=== PATIENT | male | born 1985 | race Caucasian/White ===

== ENCOUNTER 2019-10-06 13:08 | Emergency (ER) | payer OTHER, SELFPAY ==
--- NOTE | 2019-10-06 13:21 | ED.GENADULT ---
HPI - General Adult General Chief complaint: Unspecified Stated complaint: worried well Time Seen by Provider: 10/06/19 13:21 Source: patient and RN notes reviewed History of Present Illness HPI narrative: Patient is a 34-year-old male who presents the urgent care without any complaints. Patient states that he left work early last week and told his work that his son was diagnosed with influenza A, last Sunday. His employer is now having him cleared to go back to work . Patient does not have any respiratory symptoms and denies of any fever, nausea, vomiting, congestion, stuffy nose, shortness of breath, cough. Patient states he does not have a primary doctor. States that his work is requiring him to get checked out . Again, patient is asymptomatic. Denies of any recent travel. No acute complaints. No acute distress noted. Patient read the plan of care. Related Data Home Medications Medication Instructions Recorded Confirmed No Home Medications 10/06/19 10/06/19 Allergies Allergy/AdvReac Type Severity Reaction Status Date / Time No Known Allergies Allergy Verified 10/06/19 13:24 Review of Systems Review of Systems: Narrative: CONSTITUTIONAL: Denies fever, chills, or sweats. EYES: Denies visual changes, redness, or discharge. ENT: Denies rhinorrhea, congestion, sore throat, or otalgia. CARDIOVASCULAR: Denies chest pain, palpitations, or edema. RESPIRATORY: Denies cough or dyspnea. GASTROINTESTINAL: Denies abdominal pain, nausea, vomiting, or diarrhea. GENITOURINARY: Denies dysuria or hematuria. SKIN: Denies rash or itching. MUSCULOSKELETAL: Denies back pain, joint pain, or myalgia. NEUROLOGIC: Denies headache, numbness, or weakness. All other systems reviewed are negative, except as documented in HPI. PMFSH Social History Social History Gender identity (if verbalized by the patient): Male Comments At the time of my signature, I reviewed and agree with the nursing past medical, surgical, social, and family history. There is no relevant family history pertinent to the patient complaint. Exam Narrative: Exam Narrative: GENERAL: This is a well-nourished, well-developed patient, in no apparent distress. HEAD: normocephalic, atraumatic. EYES: PERRL. Sclera clear/white. Vision is grossly intact. EARS: External ears normal, auditory canals clear and without drainage, TMs normal without perforation. Hearing grossly intact. NOSE: External nose normal with no obvious nasal discharge, nares without redness, no rhinorrhea. THROAT: Mucous membranes moist, posterior pharynx clear. NECK: Neck supple, non-tender without lymphadenopathy, masses or thyromegaly. CARDIOVASCULAR: Regular rate and rhythm without murmurs, gallops, or rubs. RESPIRATORY: Clear to auscultation. Breath sounds equal bilaterally. No wheezes, rales, or rhonchi. SKIN: warm, intact with no suspicious lesions or rash, good texture and turgor. NEURO: awake, alert, and oriented to person, place and time. There were no obvious focal neurologic abnormalities. EXTREMITIES: No clubbing, cyanosis, or edema. Course Vital Signs Vital signs: Vital Signs Temperature 99.2 F 10/06/19 13:24 Pulse Rate 106 H 10/06/19 13:24 Respiratory Rate 16 10/06/19 13:24 Blood Pressure 152/98 H 10/06/19 13:24 Pulse Oximetry 99 10/06/19 13:24 Temperature 99.2 F 10/06/19 13:24 Pulse Rate 106 H 10/06/19 13:24 Respiratory Rate 16 10/06/19 13:24 Blood Pressure 152/98 H 10/06/19 13:24 Pulse Oximetry 99 10/06/19 13:24 Reviewed?patient is informed that they may have pre-hypertension or hypertension based on a blood pressure reading in the department. I recommend the patient call the primary care provider listed on their discharge instructions or a physician of their choice this week to arrange follow-up for further evaluation of possible pre-hypertension or hypertension. Medical Decision Making MDM Narrative Medical decision making narrative: Patient
[2019-10-06 13:24] VITALS: BP 152/98; PULSE 106; RESP 16; TEMP 37.3; O2SAT 99
== END 2019-10-06 13:38 | disposition home or self-care (01) ==
PROVIDERS: Emergency Provider Nurse Practitioner Family
DX: Z71.1 Person with feared health complaint in whom no diagnosis is made (principal)
CPT/HCPCS: 99211; G0463

== ENCOUNTER 2025-01-19 19:18 | Emergency (ER) | payer OTHER, SELFPAY ==
[2025-01-19 19:24] VITALS: BP 173/124; PULSE 103; RESP 20; TEMP 36.9; O2SAT 100
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
== END 2025-01-19 19:43 | disposition home or self-care (01) ==
DX: L24.5 Irritant contact dermatitis due to other chemical products (principal)
CPT/HCPCS: 99211; G0463